=== PATIENT | female | born 1950 | race Caucasian/White ===

== ENCOUNTER 2017-03-06 09:26 | Inpatient (IN) | payer MEDICARE, OTHER ==
[~2017-03-06 09:26] MED LIST: AMBIEN10 M1 PO; AMLODIPINE BES2.5 M1 PO; CYMBALTA60 M1 PO; GABAPENTIN300 M1 PO; KLONOPIN1 M1 PO; LOSARTAN POTASS25 M1 PO; MOBIC7.5 M2 PO; POTASSIUM OTC; REFRESH TEARS15 M1 OP; SODIUM CHLORIDE
[2017-03-06 10:20] LABS: INR 1.1 INR (0.9-1.1); PROTHROMBIN TIME 12.3 SECONDS (9.0-13.6)
[2017-03-07 05:30] LABS: BASO % 0.1 % (0-2); HCT-HEMATOCRIT 33.7 % (34.0-49.0); HGB-HEMOGLOBIN 10.9 gm/dl (12.0-15.5); IMMATURE GRANULOCYTES ABSOLUTE 0.03 tho/cmm (0-0.03); IMMATURE GRANULOCYTES PERCENT 0.2 % (0-0.3); LYMPH % 5.9 % (20-45); LYMPH ABSOLUTE COUNT 0.8 tho/cmm (0.8-4.5); MCH (MEAN CORPUSCULAR HGB) 28.2 pg (28.0-32.0); MCHC MEAN CORPUSCULAR HGB CONC 32.3 % (32.0-36.0); MCV (MEAN CELL VOLUME) 87.3 fl (82.0-96.0); MONO % 6.9 % (0-12); MONOCYTE ABSOLUTE COUNT 0.9 tho/cmm (0.0-1.2); NEUTROPHIL ABSOLUTE COUNT 11.4 tho/cmm (1.6-8.0); NEUTROPHIL-AUTOMATED 11.4 tho/cmm (1.6-8.0); NEUTROPHILS % 86.9 % (40-80); PLATELET COUNT 226 tho/cmm (150-450); RED BLOOD COUNT 3.86 mil/cmm (4.00-5.20); RED CELL DISTRIBUTION WIDTH 13.9 % (12.4-16.4); WHITE BLOOD COUNT 13.2 tho/cmm (4.0-10.0)
[2017-03-08] MEDS ORDERED: SENOKOT-S TABL1 EACH PO (09:36)
[2017-03-08] MEDS ORDERED: ULTRAM50 M1 (09:36)
[2017-03-08] MEDS ORDERED: ULTRAM50 M1 PO (09:39)
[2017-03-08] MEDS ORDERED: TYLENOL325 M2 PO (09:40)
[2017-03-08] MEDS ORDERED: ROXICODONE5 M2 PO (09:41)
[2017-03-08] MEDS ORDERED: ASPIRIN81 M1 PO (09:43)
== END 2017-03-08 11:59 | DRG 470 ==
LOC: SHSC 09:26 → ORE 12:59 → PACU 14:25 → 5EA 15:25
PROVIDERS: ADMIT Orthopaedic Surgery Foot and Ankle Surgery
PROC: 3E0F7GC Introduction of Other Therapeutic Substance into Respiratory Tract, Via Natural or Artificial Opening (ICD-10-PCS; principal; 2017-03-06)
PROC: 0SRC0J9 Replacement of Right Knee Joint with Synthetic Substitute, Cemented, Open Approach (ICD-10-PCS; principal; 2017-03-06)
DX: M17.11 Unilateral primary osteoarthritis, right knee (principal); I10 Essential (primary) hypertension; E66.9 Obesity, unspecified; M79.7 Fibromyalgia; Z87.891 Personal history of nicotine dependence; Z68.31 Body mass index [BMI] 31.0-31.9, adult; F41.8 Other specified anxiety disorders; D72.828 Other elevated white blood cell count
CPT/HCPCS: C1713; C1776; J0171; J0690; J1170; J1885; J2270; J2795; J3010; J7050